=== PATIENT | male | born 2000 | race Caucasian/White ===

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

== ENCOUNTER 2023-05-30 23:02 | Emergency (ER) | payer OTHER ==
[~2023-05-30] VITALS: Ht 185.4 cm; Wt 116.8 kg
[2023-05-31 00:14] LABS: BASOPHILS # (AUTO) 0.1 X10'3 (0-0.2); BASOPHILS % (AUTO) 1.2 % (0-1); EOSINOPHILS % (AUTO) 0 % (0-6); HEMATOCRIT 43.2 % (42.0-52.0); HEMOGLOBIN 15.1 g/dl (14.0-17.9); LYMPHOCYTES # (AUTO) 0.6 X10'3 (1.1-4.8); LYMPHOCYTES % (AUTO) 10.3 % (21-51); MEAN CORPUSCULAR HEMOGLOBIN 28.2 PG (27.0-31.0); MEAN CORPUSCULAR HGB CONC 34.9 g/dL (33.0-36.5); MEAN CORPUSCULAR VOLUME 80.7 FL (78-98); MEAN PLATELET VOLUME 9.1 FL (7.4-10.4); MONOCYTES # (AUTO) 0.6 X10'3 (0-0.9); MONOCYTES % (AUTO) 10.5 % (2-12); NEUTROPHILS # (AUTO) 4.2 X10'3 (1.8-7.7); PLATELET COUNT 191 X10'3 (140-440); RED BLOOD COUNT 5.35 X10'6 (4.70-6.10); RED CELL DISTRIBUTION WIDTH 13.8 % (11.5-14.5); WHITE BLOOD COUNT 5.4 X10'3 (4.5-11.0)
[2023-05-31 00:24] LABS: ALANINE AMINOTRANSFERASE 29 U/L (12-78); ALBUMIN 4.1 G/DL (3.4-5.0); ALBUMIN/GLOBULIN RATIO 1.1 (1.1-1.5); ALKALINE PHOSPHATASE 83 IU/L (46-116); ANION GAP 14 (8-16); ASPARTATE AMINO TRANSFERASE 21 U/L (10-37); BILIRUBIN,TOTAL 0.9 MG/DL (0.1-1.0); BLOOD UREA NITROGEN 9 MG/DL (7-18); BUN/CREATININE RATIO 8.9 (10.0-20.0); CALCIUM 9.1 MG/DL (8.5-10.1); CHLORIDE 97 MMOL/L (99-107); CREATININE 1.01 MG/DL (0.60-1.10); GLUCOSE 123 MG/DL (70-104); LIPASE 92 U/L (73-393); SODIUM 134 MMOL/L (135-145); TOTAL CARBON DIOXIDE 22.8 MMOL/L (24-32); eGFR > 90 ML/MIN
[2023-05-31] MEDS ORDERED: morphine 4 MG/ML inj SYRINge IV PRN (02:55)
[2023-05-31] MEDS ORDERED: ondansetron/PF 4mg/2ml inj IV ONE (02:55)
[2023-05-31] MEDS ORDERED: normal saline 1000ML IV soln IVB ONE (02:55)
[2023-05-31 05:41] VITALS: BP 146/68
[2023-05-31] MEDS ORDERED: ONDA4TAB12 PO (06:01)
[2023-05-31] MEDS ORDERED: AMOX-117 PO (06:01)
[2023-05-31] MEDS ORDERED: amox tr/potassium clavulanate 875/125mg TAB PO ONE (06:05)
[2023-05-31 06:28] LABS: CLARITY,URINE CLEAR (Clear); COLOR,URINE YELLOW (Yellow); GLUCOSE, URINE NEGATIVE (Neg); KETONES,URINE 40 mg/dl (Neg); LEUKOCYTE ESTERASE ,URINE NEGATIVE (Neg); NITRITES, URINE NEGATIVE (Neg); OCCULT BLOOD,URINE TRACE-INTACT (Neg); PROTEIN,URINE TRACE mg/dl (Neg)
[2023-05-31 06:29] LABS: UA COLLECTION TYPE URINAL
[2023-05-31 06:34] LABS: BACTERIA,URINE FEW /HPF (Neg); MUCUS STRANDS MANY /LPF (Neg); RBC,URINE 0-2 /HPF (0-2); SQUAMOUS EPITHELIAL CELL,UR FEW /LPF (FEW)
[2023-05-31 06:35] LABS: FINE GRANULAR CAST 0-3 /LPF (NEGATIVE)
== END 2023-05-31 06:34 | disposition home or self-care (01) ==
LOC: ER 23:02
DX: K52.9 Noninfective gastroenteritis and colitis, unspecified (principal); J18.8 Other pneumonia, unspecified organism; R50.9 Fever, unspecified
CPT/HCPCS: 36415; 74176; 80053; 81001; 83690; 85025; 87088; 96361; 96374; 96375; 99285; J2270; J2405; J7030